=== PATIENT | female | born 1955 | race Two or more races ===

== ENCOUNTER → 2024-07-10 | Outpatient (CLI) | payer MEDICARE, SELFPAY ==
--- NOTE | 2024-07-10 09:00 | XR_ITS ---
Examination: CT brain head without contrast. 2-D sagittal coronal reconstructions Date and time of exam:July 10, 2024 0901 hours INDICATIONS: Visual disturbances with headaches blurred vision out of the left eye beginning one month ago CTDI: vol (mGy):45.4 DLP: (mGycm):900 Technique: Multiple CT axial sections of the brain have been obtained, 5 mm slice thickness. Contrast has not been administered. 2-D sagittal, coronal reconstructions have been obtained Low dose protocols were performed. One or more of the following dose reduction techniques were used; automated exposure control, adjustment of the mA and/or KV according to patient size, use of iterative reconstruction technique. Findings: No significant ventricular enlargement. Intra-axial or extra-axial hemorrhage density is not seen. No mass effect or midline shift Basal cisterns are not remarkable. Fourth ventricle is midline. Cranial vault intact. Impression: Negative for acute hemorrhage, mass effect or midline shift If visual symptoms persist, consider brain MRI follow-up pre and postcontrast
== END | disposition home or self-care (01) ==
LOC: CCTX 08:22
PROVIDERS: PCP Nurse Practitioner Primary Care; Referring Provider Nurse Practitioner Primary Care; Visit Provider Nurse Practitioner Primary Care
DX: H53.8 Other visual disturbances (principal)
CPT/HCPCS: 70450

== ENCOUNTER → 2024-07-27 | Outpatient (CLI) | payer MEDICARE, MEDICAID, SELFPAY ==
--- NOTE | 2024-07-27 11:15 | XR_ITS ---
Examination: Lumbar spine, 5 views Technique: Lumbar spine AP, lateral, coned lateral lower lumbar spine, bilateral obliques 5 views Exam date and time: July 27, 2024 1124 hours INDICATIONS: Low back pain beginning 2 months ago. 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
== END | disposition home or self-care (01) ==
PROVIDERS: PCP Nurse Practitioner Primary Care; Referring Provider Nurse Practitioner Primary Care; Visit Provider Nurse Practitioner Primary Care
DX: M51.369 Other intervertebral disc degeneration, lumbar region without mention of lumbar back pain or lower extremity pain (principal); M48.061 Spinal stenosis, lumbar region without neurogenic claudication
CPT/HCPCS: 72110

== ENCOUNTER 2024-08-04 10:43 | Emergency (ER) | payer MEDICARE, MEDICAID, SELFPAY ==
[2024-08-04 11:58] VITALS: BP 174/84; PULSE 90; RESP 16; TEMP 37.4; O2SAT 95; BMI 29.0
--- NOTE | 2024-08-04 12:20 | EDNOTE_ITS ---
ED Extremity Problem RME/HPI General Chief complaint: Extremity Problem,Nontraumatic Stated complaint: BILAT LEG PAIN / WEAK; COLD SYMPTOMS Time Seen by Provider: 08/04/24 12:09 Arrival date/time: 08/04/24 10:43 This is a 69-year-old female that comes in with complaints of right sided lower back pain that radiates down her leg. Patient also complains of runny nose,, cough and flulike symptoms. Patient states that it has been going on for over a week and she is feeling better. Patient eating and drinking with no issues. Patient has a history of diabetes. Patient reports that she was recently seen by her primary provider and x-rays were done and she needs to follow-up next week for results. Related Data Previous Rx's ?Medication ?Instructions ?Recorded acetaminophen 500 mg capsule 1,000 mg (2 x 500 mg) PO TID #30 07/22/22 caps dextromethorphan-guaifenesin 10 10 ml PO Q8H PRN cough #500 mL 07/22/22 mg-100 mg/5 mL oral liquid nirmatrelvir 300 mg (150 mg See Rx Instructions PO .COMPLEX 07/22/22 x2)-ritonavir 100 mg tablet,dose #30 tabs pack (Paxlovid) cyclobenzaprine 5 mg tablet 5 mg PO HS #10 tabs 08/04/24 ibuprofen 600 mg tablet 600 mg PO QID PRN pain #10 tabs 08/04/24 Allergies Allergy/AdvReac Type Severity Reaction Status Date / Time No Known Allergies Allergy Verified 08/04/24 10:46 Review of Systems Review of Systems Systems Reviewed: All systems reviewed, normal except as documented Past Medical History Past Medical History Comments PMH COMMENT: hx of diabetes ED Exam General General appearance: Present alert and in no apparent distress Head Head exam: Present atraumatic Eye Eye exam: Present normal appearance, PERRL and EOMI ENT ENT exam: Present normal exam, normal oropharynx and mucous membranes moist Neck Neck exam: Present normal inspection, full ROM and trachea midline Chest Chest inspection: Present normal inspection and symmetric chest wall rise Respiratory Respiratory exam: Present normal lung sounds bilaterally Cardiovascular Cardiovascular exam: Present regular rate, normal rhythm and normal heart sounds Abdominal Exam Abdominal exam: Present soft Extremities Exam Extremities exam: Present normal inspection and full ROM Back Exam Back exam: Present normal inspection and full ROM Neurological Exam Neurological exam: Present alert, oriented X3 and CN II-XII intact Psychiatric Psychiatric exam: Present normal affect and normal mood Skin Skin exam: Present warm, dry, intact and normal color Course Quality Measures none Orders Category Date Time Status Bedside COVID-19 Antigen Test NOW Care 08/04/24 12:23 Completed Bedside Influenza A&B Antigen Test NOW Care 08/04/24 12:24 Completed XR chest 2V Stat Exams 08/04/24 12:23 Completed Ketorolac Inj [Toradol Inj] Med 08/04/24 12:20 Discontinued 30 mg IM X1 ONE Ondansetron Odt [Zofran Odt] Med 08/04/24 12:22 Discontinued 4 mg PO X1 ONE Vital Signs Vital signs: Vital Signs Temperature 99.3 F 08/04/24 11:58 Pulse Rate 90 08/04/24 11:58 Respiratory Rate 16 08/04/24 11:58 Blood Pressure 174/84 H 08/04/24 11:58 Pulse Oximetry (%) 95 08/04/24 11:58 Oxygen Delivery Method Room Air 08/04/24 11:58 Extremity Problem MDM Narrative MDM Narrative:: Patient is influenza and COVID-negative. Patient was given Toradol for pain. Chest x ray: Findings: Minimal prominence left ventricle Ectatic thoracic aorta. Mild prominence pulmonary vasculature. No lobar pneumonia Intact osseous structures Impression: Mild prominence pulmonary vasculature No pneumonia identified Patient data External records reviewed:: [facility] previous records Clinical information provided by:: patient Social determinants that could affect healthcare access:: none Patient has the following chronic illnesses:: dm How is presenting disease/condition affected by chronic disease/condition?: uneffected by Evaluation data The following diagnostics were reviewed and interpreted by me:: lab results Lab and/or radiology exams considered but not ordered:: none Interpretation Summary: see note Medications / Prescriptions Medications or Prescriptions considered but not ordered:: none Medication administrations:: Medication Administration History Discontinued Medications Ketorolac Tromethamine (Ketorolac Inj 60 Mg/2 Ml Vial) 30 mg IM X1 ONE Stop: 08/04/24 12:21 Last Admin: 08/04/24 13:10 Dose: 30 mg Documented By: OA Ondansetron HCl (Ondansetron Odt 4 Mg Tabrap) 4 mg PO X1 ONE; Protocol Stop: 08/04/24 12:23 Last Admin: 08/04/24 13:10 Dose: 4 mg Documented By: OA see mar Consultations Consultation(s) initiated? (list below): No Diagnosis Most likely diagnosis given after review of the tests above:: back pain Admission Indicated Admission indicated?: not indicated Admission Request Was there a request for admission?: No Disposition Plan Disposition Plan: Discharge Discharge Attestation Discharge Attestation: The patient and all family members were given an opportunity to ask questions and understood the discharge instructions. Discharge instructions specifically effects, indications for sooner follow up or return to the emergency department, and the expected course of current diagnosis. Patient condition: Stable Discharge Plan Plan Patient Disposition: HOME (Self Care) Patient condition on transfer: Stable Prescriptions/Referrals Prescriptions/Med Rec: New ibuprofen 600 mg tablet 600 mg PO QID PRN (Reason: pain) Qty: 10 0RF cyclobenzaprine 5 mg tablet 5 mg PO HS Qty: 10 0RF No Action Paxlovid 300 mg (150 mg x 2)-100 mg tablets,dose pack See Rx Instructions .ROUTE .COMPLEX Qty: 30 0RF Rx Instructions: take TWO 150 mg tablets of nirmatrelvir with ONE 100 mg tablet of ritonavir twice daily for 5 days dextromethorphan-guaifenesin 10-100 mg/5 mL liquid 10 ml PO Q8H PRN (Reason: cough) Qty: 500 0RF acetaminophen 500 mg capsule 1,000 mg PO TID Qty: 30 0RF Referrals: Rosemarie Jimenez MD [Primary Care Provider] - In 1 week Problem List Clinical Impression: Back pain Patient/Caregiver Discharge Instructions Discharge Activity: as per physical therapy Education Materials: ED Back Pain (Acute or Chronic) Additional Instructions: Follow-up as scheduled with primary provider. Come back to the emergency room if symptoms change or worsen. Print Language: Indonesian Stand Alone Forms: Mary Award Info., Patient Portal Info Letter NIKHIL/CRIS Supervising Physician NIKHIL/CRIS Supervising Physician: cliff
--- NOTE | 2024-08-04 12:23 | XR_ITS ---
Examination: PA lateral chest 2 views Technique: Upright PA lateral chest 2 views Exam date and time: August 04, 2024 1253 hrs. Comparison March 19, 2023 Indications: Coughing today. Findings: Minimal prominence left ventricle Ectatic thoracic aorta. Mild prominence pulmonary vasculature. No lobar pneumonia Intact osseous structures Impression: Mild prominence pulmonary vasculature No pneumonia identified
[2024-08-04] MEDS: ONDANSETRON ODT 4 MG TABRAP PO (13:10)
[2024-08-04] MEDS: KETOROLAC INJ 60 MG/2 ML VIAL 30 MG IM (13:10)
== END 2024-08-04 15:14 | disposition home or self-care (01) ==
PROVIDERS: Emergency Provider Emergency Medicine; PCP Family Medicine
DX: M54.50 Low back pain, unspecified (principal); E11.9 Type 2 diabetes mellitus without complications
CPT/HCPCS: 71046; 87400; 87811; 96372; 99283; J1885; Q0162

== ENCOUNTER → 2024-08-30 | Outpatient (CLI) | payer MEDICARE, SELFPAY ==
--- NOTE | 2024-08-30 12:55 | XR_ITS ---
Examination: Screening digital mammography, bilateral Computer aided detection 3-D breast Tomosynthesis, bilateral Date and time of exam: August 30, 2024 1304 hours Compared to mammograms dating to 2013 Indication: Screening Technique: Nonmagnified MLO, CC views of the breasts to been obtained, reconstructed from 3-D Tomosynthesis images. R2 computer aided detection program utilized for evaluation of suspicious masses and/or abnormal calcifications. 3-D Tomosynthesis images obtained. Findings: Scattered areas of fibroglandular density. Benign calcifications. No interval suspicious masses Impression: BI-RADS category II: Benign Findings. Recommend 1 year follow-up mammogram.
== END | disposition home or self-care (01) ==
PROVIDERS: PCP Nurse Practitioner Primary Care; Referring Provider Nurse Practitioner Primary Care; Visit Provider Nurse Practitioner Primary Care
DX: Z12.31 Encounter for screening mammogram for malignant neoplasm of breast (principal); R92.323 Mammographic fibroglandular density, bilateral breasts; R92.1 Mammographic calcification found on diagnostic imaging of breast
CPT/HCPCS: 77063; 77067

== ENCOUNTER → 2024-12-06 | Outpatient (CLI) | payer OTHER, SELFPAY ==
--- NOTE | 2024-12-06 12:40 | XR_ITS ---
Examination: Bone densitometry Date and time of exam:December 06, 2024 1422 hours INDICATIONS: Menopause age 50 diabetic levothyroxine 3 years Technique: Lumbar spine and hip total bone mineralization values of an calculated. Peak reference and age match control results have been displayed. Findings: Lumbar spine total bone mineralization is1.208 gm/cm2. This is 1.5 standard deviations above peak reference. This is 3.5 standard deviations above age-matched controls. Hip total bone mineralization is 1.052 gm/cm2 This is 0.7 standard deviations above peak reference. This is 2.0 standard deviations above age-matched controls Impression: There is normal mineralization based on lumbar spine measurements. There is normal mineralization based on hip measurements
== END | disposition home or self-care (01) ==
LOC: CDIM 13:53
PROVIDERS: Referring Provider Family Medicine; Visit Provider Family Medicine
DX: M81.0 Age-related osteoporosis without current pathological fracture (principal)
CPT/HCPCS: 77080

== ENCOUNTER 2025-04-01 10:53 | Emergency (ER) | payer OTHER, MEDICAID, SELFPAY ==
[2025-04-01] MEDS: IBUPROFEN TAB 400 MG TABLET 800 MG PO (11:47)
[2025-04-01] MEDS: ACETAMINOPHEN 500 MG TABLET 1000 MG PO (11:48)
[2025-04-01] MEDS: METOCLOPRAMIDE 5 MG TABLET 10 MG PO (11:48)
--- NOTE | 2025-04-01 11:48 | EDNOTE_ITS ---
<Statement entered by Ramona Sexton MD - 04/17/25 06:12> As co-signing physician, I was present and available for consult prn. I concur with the plan and care as documented by the midlevel provider. ED Headache RME/HPI General Chief Complaint: General Adult/Misc Complain Stated Complaint: KOEHLER, NAILS BLEEDING, LEFT PALM RED TODAY Time Seen by Provider: 04/01/25 11:25 Arrival date/time: 04/01/25 10:53 This is a 70-year-old female who comes into the emergency room with multiple complaints. Patient states this morning her nailbed to her left hand first digit started bleeding. Patient states her arm got slightly swollen and then the bleeding stopped. Patient's hand is no longer swollen or raised her nailbed is no longer bleeding. Patient also complains of chronic leg pain chronic back pain and a headache today. Patient states none of her symptoms are are new. Patient states that sometimes her back pain radiates down her legs mostly to the right leg. Patient uses a walker to ambulate. Patient states on and off for the last couple years she has had tingling to her feet. Patient does have a history of diabetes. Related Data Previous Rx's ?Medication ?Instructions ?Recorded acetaminophen 500 mg capsule 1,000 mg (2 x 500 mg) PO TID #30 07/22/22 caps dextromethorphan-guaifenesin 10 10 ml PO Q8H PRN cough #500 mL 07/22/22 mg-100 mg/5 mL oral liquid nirmatrelvir 300 mg (150 mg See Rx Instructions PO .CO MPLEX 07/22/22 x2)-ritonavir 100 mg tablet,dose #30 tabs pack (Paxlovid) cyclobenzaprine 5 mg tablet 5 mg PO HS #10 tabs ibuprofen 600 mg tablet 600 mg PO QID PRN pain #10 t abs 08/04/24 ibuprofen 800 mg tablet 800 mg PO Q6H PRN pain #14 t abs 04/01/25 Allergies Allergy/AdvReac Type Severity Reaction Status Date / Time No Known Allergies Allergy Verified 04/09/25 18:10 Review of Systems Review of Systems Systems Reviewed: All systems reviewed, normal except as documented Past Medical History Past Medical History Comments PMH COMMENT: hx of diabetes ED Exam Narrative Physical exam: There VITAL SIGNS: Reviewed. GENERAL APPEARANCE: Alert and interactive, follows commands, no acute distress HEAD AND FACE: Non-traumatic. ENT: PERRL, conjuctiva pink and clear, eyelid no trauma, Mucous membrane moist. NECK: Supple, nontender, no nuchal rigidity. CHEST: No tenderness, no crepitus, no paradoxical movement, no retractions. LUNGS: Clear, well ventilated, symmetric, no rales, no wheezing, no rhonchi, no stridor, good breath sounds bilaterally. HEART: Regular rate, regular rhythm, no murmur, no gallops. ABDOMEN: Soft, nondistended, no guarding, nontender NEUROLOGICAL: Gross motor function intact sensory function intact, Appropriate for age. No focal deficits MUSCULOSKELETAL: low back nontender, full range of motion. EXTREMITIES: No redness no swelling no skin breakdown on bilateral foot and leg. Distal neurovascular status intact bilateral foot, ambulatory with a walker SKIN: Color pink, dry, no rash, no laceration Course Quality Measures none Orders Category Date Time Status Acetaminophen Tab [Tylenol ES Tab] Med 04/01/25 11:42 Discontinued 1,000 mg PO X1 ONE Ibuprofen Tab [Motrin Tab] Med 04/01/25 11:42 Discontinued 800 mg PO X1 ONE Metoclopramide [Reglan] Med 04/01/25 11:42 Discontinued 10 mg PO X1 ONE Headache MDM Narrative MDM Narrative:: went to [facility] to check on patient and patient left, wem went back and called several times and no answer Patient data External records reviewed:: [facility] previous records Clinical information provided by:: patient Social determinants that could affect healthcare access:: none Patient has the following chronic illnesses:: none How is presenting disease/condition affected by chronic disease/condition?: no chronic disease Evaluation data The following diagnostics were reviewed and interpreted by me:: other (specify) (none ) Lab and/or radiology exams considered but not ordered:: none Interpretation Summary: see note Medications / Prescriptions Medications or Prescriptions considered but not ordered:: none Medication administrations:: Medication Administration History Discontinued Medications Acetaminophen (Acetaminophen 500 Mg Tablet) 1,000 mg PO X1 ONE Stop: 04/01/25 11:43 Last Admin: 04/01/25 11:48 Dose: 1,000 mg Documented By: OA Ibuprofen (Ibuprofen Tab 400 Mg Tablet) 800 mg PO X1 ONE Stop: 04/01/25 11:43 Last Admin: 04/01/25 11:47 Dose: 800 mg Documented By: RAMOS Metoclopramide HCl (Metoclopramide 5 Mg Tablet) 10 mg PO X1 ONE Stop: 04/01/25 11:43 Last Admin: 04/01/25 11:48 Dose: 10 mg Documented By: OA see mar Consultations Consultation(s) initiated? (list below): No Diagnosis Differential diagnosis headache: migraine, tension headache, headache and sinusitis Most likely diagnosis given after review of the tests above:: headache Admission Indicated Admission indicated?: not indicated Admission Request Was there a request for admission?: No Disposition Plan Disposition Plan: Discharge Discharge Attestation Discharge Attestation: The patient and all family members were given an opportunity to ask questions and understood the discharge instructions. Discharge instructions specifically effects, indications for sooner follow up or return to the emergency department, and the expected course of current diagnosis. Patient condition: Stable Discharge Plan Plan Patient Disposition: Elopement Patient condition on transfer: Stable Prescriptions/Referrals Prescriptions/Med Rec: New ibuprofen 800 mg tablet 800 mg PO Q6H PRN (Reason: pain) Qty: 14 0RF No Action ibuprofen 600 mg tablet 600 mg PO QID PRN (Reason: pain) Qty: 10 0RF cyclobenzaprine 5 mg tablet 5 mg PO HS Qty: 10 0RF Paxlovid 300 mg (150 mg x 2)-100 mg tablets,dose pack See Rx Instructions .ROUTE .COMPLEX Qty: 30 0RF Rx Instructions: take TWO 150 mg tablets of nirmatrelvir with ONE 100 mg tablet of ritonavir twice daily for 5 days dextromethorphan-guaifenesin 10-100 mg/5 mL liquid 10 ml PO Q8H PRN (Reason: cough) Qty: 500 0RF acetaminophen 500 mg capsule 1,000 mg PO TID Qty: 30 0RF Referrals: Joelle Correa MD [Primary Care Provider] - In 1 week Problem List Clinical Impression: Acute leg pain, Headache Patient/Caregiver Discharge Instructions Discharge Activity: activity as tolerated Education Materials: ED RICE Additional Instructions: Hannah un [facility] con [facility] en las proximas 24-48 horas. Regrese a la roland de emergencias si hay evidencia de que los signos o sintomas empeoran. Print Language: Kazakh Stand Alone Forms: Mary Award Info., Patient Portal Info Letter PA/HOSE COUPLING JOINER Supervising Physician PA/HOSE COUPLING JOINER Supervising Physician: vahid
--- NOTE | 2025-04-01 13:12 | PC.NURSE ---
no answer in lobby when called for review
--- NOTE | 2025-04-01 13:27 | PC.NURSE ---
no answer in lobby when called for review
--- NOTE | 2025-04-01 13:45 | PC.NURSE ---
no answer in lobby when called for review
== END 2025-04-01 14:54 | disposition left against medical advice (07) ==
PROVIDERS: Emergency Provider Emergency Medicine; PCP Family Medicine
DX: R51.9 Headache, unspecified (principal); M79.604 Pain in right leg; G89.29 Other chronic pain
CPT/HCPCS: 99283; A9270

== ENCOUNTER 2025-04-09 18:03 | Emergency (ER) | payer OTHER, MEDICAID, SELFPAY ==
[2025-04-09 18:45] VITALS: BP 168/76; PULSE 81; RESP 18; TEMP 37.1; O2SAT 97
--- NOTE | 2025-04-09 19:12 | XR_ITS ---
Examination: Fingers, left hand 3 views 3 views Technique: AP, oblique, lateral views left hand fifth digit. Exam date and time: 10/03/2024, 1920 hrs. Indications: Patient fell today with injury to the hand fifth digit pain Findings: Dislocation at the proximal interphalangeal joint fifth digit, no fracture Impression: Dislocation at the proximal phalangeal joint fifth digit
--- NOTE | 2025-04-09 19:12 | XR_ITS ---
Examination: CT maxillofacial, without intravenous contrast. 2-D sagittal reconstructions. 3-D reconstructions. Date and time of exam:April 09, 2025, 1916 hrs. Indications: Ground-level fall injury to the head, head pain CTDI: vol (mGy):21.7 DLP: (mGycm):355 Technique: Multiple axial images of maxillofacial region, 3.0 mm slice thickness. 2-D sagittal and coronal reconstructions. 3-D reconstructions. Low dose protocols were performed. One or more of the following dose reduction techniques were used; automated exposure control, adjustment of the mA and/or KV according to patient size, use of iterative reconstruction technique. Findings: Soft tissue hematoma frontal scalp Frontal bone frontal sinuses intact. Orbital rims intact Bilateral displaced nasal bone fractures No depression zygomatic arches 25 mm polyp in the right maxillary antrum. Pterygoid plates maxilla and the wall is intact Impression: Bilateral acute nasal bone fractures
--- NOTE | 2025-04-09 19:12 | XR_ITS ---
Examination: CT cervical spine without contrast 2-D sagittal reconstructions 2-D coronal reconstructions 3-D reconstructions. Exam date and time:January,, 4 hrs. Indications: Ground-level fall today with injury to the neck, neck pain CTDI:vol (mGy) 17.4. DLP: (mGycm) 394 Technique: Multiple 2 mm axial sections of the cervical spine have been obtained. The coronal and sagittal reconstructions have been obtained. 3-D reconstructions have been obtained. Low dose protocols were performed. One or more of the following dose reduction techniques were used; automated exposure control, adjustment of the mA and/or KV according to patient size, use of iterative reconstruction technique. Findings: Axial sections demonstrate intact base of the skull. C1 exhibit satisfactory relationship to the odontoid. No acute cervical vertebral body fracture seen. Alignment posterior spinous processes satisfactory. Advanced degenerative disc disease C5-C6 Impression: No acute cervical fracture.
--- NOTE | 2025-04-09 19:12 | XR_ITS ---
Examination: CT brain head without contrast. 2-D sagittal coronal reconstructions Date and time of exam:April 09, 2025, 1915 hrs. Indications: Ground-level fall today with injury to the head and face, head pain facial pain CTDI: vol (mGy):40.5. DLP: (mGycm):552. Technique: Multiple CT axial sections of the brain have been obtained, 5 mm slice thickness. Contrast has not been administered. 2-D sagittal, coronal reconstructions have been obtained Low dose protocols were performed. One or more of the following dose reduction techniques were used; automated exposure control, adjustment of the mA and/or KV according to patient size, use of iterative reconstruction technique. Findings: No significant ventricular enlargement. Intra-axial or extra-axial hemorrhage density is not seen. No mass effect or midline shift Basal cisterns are not remarkable. Fourth ventricle is midline. Cranial vault intact. Right frontal scalp hematoma Impression: Negative for acute hemorrhage, mass effect or midline shift
[2025-04-09] MEDS: HYDROcodone/APAP 5/325 TABLET 1 TAB PO (20:52)
--- NOTE | 2025-04-09 23:36 | PD.EDFALL ---
ED Fall Injury RME/HPI General Chief Complaint: Fall Stated Complaint: FALL Time Seen by Provider: 04/09/25 19:12 Arrival date/time: 04/09/25 18:03 70F with no significant PMH presents to ED with head, face, and L pinky pain after trip and fall over garden hose. Patient also had a nosebleed. Limitations: no limitations Related Data Previous Rx's ?Medication ?Instructions ?Recorded acetaminophen 500 mg capsule 1,000 mg (2 x 500 mg) PO TID #30 07/22/22 caps dextromethorphan-guaifenesin 10 10 ml PO Q8H PRN cough #500 mL 07/22/22 mg-100 mg/5 mL oral liquid nirmatrelvir 300 mg (150 mg See Rx Instructions PO .COMPLEX 07/22/22 x2)-ritonavir 100 mg tablet,dose #30 tabs pack (Paxlovid) cyclobenzaprine 5 mg tablet 5 mg PO HS #10 tabs 08/04/24 ibuprofen 600 mg tablet 600 mg PO QID PRN pain #10 tabs 08/04/24 ibuprofen 800 mg tablet 800 mg PO Q6H PRN pain #14 tabs 04/01/25 Allergies Allergy/AdvReac Type Severity Reaction Status Date / Time No Known Allergies Allergy Verified 04/09/25 18:10 Review of Systems Musculoskeletal Musculoskeletal: Reports as per HPI and Reports arthralgias Integumentary/Breasts Skin/Breast: Reports as per HPI and Reports skin pain Past Medical History Social History SMOKING STATUS: Never smoker ED Exam General Limitations: Present no limitations General appearance: Present alert and in no apparent distress Expanded Head Exam Head exam physical: Present contusion and hematoma Eye Eye exam: Present normal appearance, PERRL and EOMI Neck Neck exam: Present normal inspection, full ROM and trachea midline Chest Chest inspection: Present normal inspection and symmetric chest wall rise Expanded Upper Extremity Exam Hand exam: Present deformity (L pinky) Neurological Exam Neurological exam: Present alert, oriented X3 and CN II-XII intact Psychiatric Psychiatric exam: Present normal affect and normal mood Skin Skin exam: Present warm, dry, intact and normal color Course Quality Measures none Orders Category Date Time Status Wound Care NOW Care 04/09/25 19:[address] cervical spine wo con Stat Exams 04/09/25 19:[address] facial bones wo con Stat Exams 04/09/25 19:[address] head/brain wo con Stat Exams 04/09/25 19:12 Completed XR finger LT min 2V Stat Exams 04/09/25 19:12 Completed HYDROcodone*/APAP 5/325 [[place] 5/325] Med 04/09/25 20:47 Discontinued 1 tab PO X1 ONE Vital Signs Vital signs: Vital Signs Temperature 98.7 F 04/09/25 18:45 Pulse Rate 81 04/09/25 18:45 Respiratory Rate 18 04/09/25 18:45 Blood Pressure 168/76 H 04/09/25 18:45 Pulse Oximetry (%) 97 04/09/25 18:45 Oxygen Delivery Method Room Air 04/09/25 18:45 O2 at 97% on RA and WNLs PROCEDURES: Orthopedic Joint Reduction Joint #1: Time Out Performed: No Side: Left Joint Reduction Location: finger Analgesia: none Technique used: direct manipulation Post-reduction neuro exam: intact Post-reduction vascular: intact Post Reduction X-Ray Obtained: No Splint Applied: No Patient Tolerated Procedure: well Fall MDM Narrative MDM Narrative:: 70F with no significant PMH presents to ED with head, face, and L pinky pain after trip and fall over garden hose. Patient also had a nosebleed. Physical exam reveals some dried blood in nares, but no hematoma. Some facial swelling. Normal pupil response and EOM. Neck ROM intact. Gait normal. Speech normal. L pinky deformity. Limited ROM. Patient is afebrile, calm, and alert. CT reveals nasal fx. XR finger dislocation, which was reduced. Patient data External records reviewed:: [facility] previous records Clinical information provided by:: patient Social determinants that could affect healthcare access:: none Patient has the following chronic illnesses:: none How is presenting disease/condition affected by chronic disease/condition?: no chronic disease Evaluation data The following diagnostics were reviewed and interpreted by me:: radiology exam(s) Lab and/or radiology exams considered but not ordered:: ordered Interpretation Summary: above Medications / Prescriptions Medications or Prescriptions considered but not ordered:: ordered Medication administrations:: Medication Administration History Discontinued Medications Hydrocodone Bitart/Acetaminophen (Hydrocodone/Apap 5/325 Tablet) 1 tab PO X1 ONE Stop: 04/09/25 20:48 Last Admin: 04/09/25 20:52 Dose: 1 tab Documented By: MF above Consultations Consultation(s) initiated? (list below): No Diagnosis Fall Differential Diagnosis: syncope, dislocation of shoulder region, fracture of wrist, compression fracture, concussion without loss of consciousness and other (finger discloation and nasal fx, brain bleed, facial/neck fx) Most likely diagnosis given after review of the tests above:: finger discloation and nasal fx Admission Indicated Admission indicated?: not indicated Admission Request Was there a request for admission?: No Disposition Plan Disposition Plan: Discharge Discharge Attestation Discharge Attestation: The patient and all family members were given an opportunity to ask questions and understood the discharge instructions. Discharge instructions specifically effects, indications for sooner follow up or return to the emergency department, and the expected course of current diagnosis. Patient condition: Stable Discharge Plan Plan Patient Disposition: HOME (Self Care) Discharge Disposition comment: Stable Prescriptions/Referrals Prescriptions/Med Rec: No Action ibuprofen 600 mg tablet 600 mg PO QID PRN (Reason: pain) Qty: 10 0RF cyclobenzaprine 5 mg tablet 5 mg PO HS Qty: 10 0RF Paxlovid 300 mg (150 mg x 2)-100 mg tablets,dose pack See Rx Instructions .ROUTE .COMPLEX Qty: 30 0RF Rx Instructions: take TWO 150 mg tablets of nirmatrelvir with ONE 100 mg tablet of ritonavir twice daily for 5 days dextromethorphan-guaifenesin 10-100 mg/5 mL liquid 10 ml PO Q8H PRN (Reason: cough) Qty: 500 0RF acetaminophen 500 mg capsule 1,000 mg PO TID Qty: 30 0RF ibuprofen 800 mg tablet 800 mg PO Q6H PRN (Reason: pain) Qty: 14 0RF Referrals: Callum Frias MD [Primary Care Provider] - In 1 week Problem List Clinical Impression: Fracture, nasal, Dislocation of finger Patient/Caregiver Discharge Instructions Education Materials: ED Finger Dislocation, ED Nose Fracture, with X-Ray Additional Instructions: Please follow-up with PCP within 24-48 hours and return immediately if symptoms worsen. Print Language: Citizen Of [place] Stand Alone Forms: Patient Portal Info Letter PA/VEHICLE DAMAGE APPRAISER Supervising Physician PA/VEHICLE DAMAGE APPRAISER Supervising Physician: Dr. Syed
== END 2025-04-09 21:14 | disposition home or self-care (01) ==
PROVIDERS: Emergency Provider Emergency Medicine; PCP Family Medicine
DX: S02.2XXA Fracture of nasal bones, initial encounter for closed fracture (principal); S63.257A Unspecified dislocation of left little finger, initial encounter; R51.9 Headache, unspecified; W01.0XXA Fall on same level from slipping, tripping and stumbling without subsequent striking against object, initial encounter
CPT/HCPCS: 26770; 70450; 70486; 72125; 73140; 99284; A9270

== ENCOUNTER → 2025-05-07 | Outpatient (CLI) | payer OTHER, MEDICAID, SELFPAY ==
--- NOTE | 2025-05-07 | XR_ITS ---
EXAMINATION: Bilateral AP knees standing single view TECHNIQUE: 1. Standing bilateral AP knee single view Date and time: May 07, 2025 11:38 a.m. INDICATIONS: Bilateral knee pain 5 years. FINDINGS: Significant osteopenia Advanced narrowing [id number] medial joint space left knee Mild to moderate narrowing remaining joint spaces right and left knees IMPRESSION: Advanced narrowing [id number] medial joint space left knee
== END | disposition home or self-care (01) ==
LOC: CDIM 11:03
PROVIDERS: PCP Family Medicine; Referring Provider Orthopaedic Surgery; Visit Provider Orthopaedic Surgery
DX: M25.862 Other specified joint disorders, left knee (principal); M25.861 Other specified joint disorders, right knee
CPT/HCPCS: 73565

== ENCOUNTER → 2025-05-17 | Outpatient (CLI) | payer OTHER, MEDICAID, SELFPAY ==
--- NOTE | 2025-05-17 09:10 | XR_ITS ---
EXAMINATION: PA lateral chest 2 views TECHNIQUE: Upright PA lateral chest 2 views Date and time: May 17, 2025, 0922 hours, comparison August 04, 2024 INDICATIONS: Preop FINDINGS: Normal heart size The lungs are clear. Mild thoracic spondylosis IMPRESSION: No active disease
== END | disposition home or self-care (01) ==
PROVIDERS: PCP Family Medicine; Referring Provider Family Medicine; Visit Provider Family Medicine
DX: Z01.818 Encounter for other preprocedural examination (principal)
CPT/HCPCS: 71046